=== PATIENT | male | born 1970 | race Caucasian/White ===

== ENCOUNTER 2020-07-16 09:17 | Emergency (ER) | payer MEDICARE, SELFPAY ==
--- NOTE | ~2020-07-16 | XR_ITS ---
EXAMINATION: XR chest 2V EXAM DATE: 07/16/2020 10:04 INDICATION: Shortness of breath, leg swelling. TECHNIQUE: Frontal and lateral projections of the chest obtained and reviewed. Comparison is made to prior examination from . FINDINGS: The lungs are clear. There are no pleural effusions. The cardiomediastinal silhouette is within normal limits. There is no pneumothorax suspected. The bones and soft tissues are unremarkab le. Mild hyperinflation. IMPRESSION: No acute cardiopulmonary findings. Reviewed, dictated and finalized at location B.
[2020-07-16 09:23] VITALS: BP 156/86; PULSE 77; RESP 18; O2SAT 94
[2020-07-16 09:28] VITALS: PULSE 76
--- NOTE | 2020-07-16 09:34 | ECG_ITS ---
Measurements Intervals [place] Rate: 75 P: 70 ND: 159 QRS: 46 QRSD: 89 T: 60 QT: 360 QTc: 404 Interpretive Statements SINUS RHYTHM LOW QRS VOLTAGE IN PRECORDIAL LEADS BASELINE ARTIFACT- I, II, III, AVR, AVL, AVF, V1-V6 BORDERLINE ECG Electronically Signed On 07-16-2020 15:54:06 CDT by Cesar Tamez D.O.
--- NOTE | 2020-07-16 09:41 | ED.SOB ---
HPI - SOB/Dyspnea General Chief Complaint: Shortness of Breath/Dyspnea Stated Complaint: sob, swelling to legs Time Seen by Provider: 07/16/20 09:41 Source: patient Mode of arrival: ambulatory Limitations: no limitations History of Present Illness HPI Narrative: Patient is a 50-year-old female with history of hypertension, COPD/asthma, chronic back pain, hyperlipidemia who presents for evaluation of shortness of breath. Patient states he awakened this morning feeling short of breath after feeling unwell over the past 48 hours. No fever, chills, states that he feels as if he cannot take a deep breath. He does report some mild wheezing. Mild, chronic cough which is not worsened from normal. No current chest pain. Patient reports chronic, worsening bilateral lower leg swelling with out redness. No calf pain. Patient states that he feels fine until he tries to ambulate anywhere which makes his shortness of breath much worse. No history of Covid. Patient is not vaccinated. He has been compliant with his medications. Patient denies any recent car or air travel. No history of coagulopathy. Related Data Allergies Allergy/AdvReac Type Severity Reaction Status Date / Time No Known Allergies Allergy Verified 07/16/20 09:27 Review of Systems Review of Systems: Narrative: CONSTITUTIONAL: Denies fever, chills, or sweats. EYES: Denies visual changes, redness, or discharge. ENT: Denies rhinorrhea, congestion, sore throat, or otalgia. CARDIOVASCULAR: Denies chest pain, palpitations, reports chronic lower extremity swelling RESPIRATORY: Reports cough and shortness of breath GASTROINTESTINAL: Denies abdominal pain, nausea, vomiting, or diarrhea. GENITOURINARY: Denies dysuria or hematuria. SKIN: Denies rash or itching. Reports bruising to his bottom. MUSCULOSKELETAL: Denies back pain, joint pain, or myalgia. NEUROLOGIC: Denies headache, numbness, or weakness. [facility] Past Medical History Medical History (Updated 07/16/20 @ 11:44 by Tanika Cruz MD) Psoriasis Social History Social History (Updated 07/16/20 @ 09:58 by Tanika Cruz MD) Smoking status: Current every day smoker Tobacco type: cigarettes Substance use: never Living arrangements: with family Gender identity (if verbalized by the patient): Male Exam Narrative: Exam Narrative: GENERAL: Awake, alert, conversant HEAD: Normocephalic, atraumatic. EYES: PERRLA and EOMI. ENT: Nares clear, no rhinorrhea or epistaxis. Mucous membranes moist. NECK: Supple. CHEST: Mild respiratory distress, decreased lung sounds at the bases, faint expiratory wheezes at the upper lung chaves, tachypnea HEART: Regular rate, sinus rhythm ABDOMEN:Non distended, non tender EXTREMITIES: Normal range of motion. Bilateral pitting edema to the knees, no calf tenderness or erythema bilaterally SKIN: Warm, dry, no rash. NEURO:No focal deficits. Alert and oriented x3 Course Vital Signs Vital signs: Vital Signs Pulse Rate 77 07/16/20 09:23 Respiratory Rate 18 07/16/20 09:23 Blood Pressure 156/86 H 07/16/20 09:23 Pulse Oximetry 94 07/16/20 09:23 Pulse Rate 75 07/16/20 11:11 Respiratory Rate 27 H 07/16/20 11:11 Blood Pressure 150/93 H 07/16/20 11:11 Pulse Oximetry 99 07/16/20 11:11 MDM - SOB/Dyspnea MDM Narrative Medical decision making narrative: Patient presented for evaluation of shortness of breath. Patient has a history of COPD, morbid obesity, is on Lasix but has no history of heart failure. IV access obtained and labs are drawn. Patient is in no significant distress at the time of assessment, states his dyspnea mostly comes with exertion. I believe this is probably multifactorial secondary to the patient's body habitus, morbid obesity, obesity hypoventilation, COPD with current smoking still. Patient was treated as a COPD exacerbation with steroids, DuoNeb treatment and felt much improved. At the time of reassessment his dyspnea had resolved.
[2020-07-16 09:54] LABS: Basophils Absolute Auto 0.1 K/mm3 (0.0-0.1); Basophils Percent Auto 0.7 % (0.2-1.2); Eosinophils Absolute Auto 0.2 K/mm3 (0-0.3); Eosinophils Percent Auto 2.6 % (0-4.4); Hematocrit 47.4 % (42.0-52.0); Hemoglobin 15.6 g/dL (14.0-18.0); Immature Granulocyte Absolute 0.05 K/mm3 (0.00-0.031); Immature Granulocyte Percent A 0.5 % (0-0.5); Lymphocytes Absolute Auto 2.55 K/mm3 (0.9-3.2); Lymphocytes Percent Auto 27.7 % (18.3-44.2); Mean Corpuscular HGB Conc 32.9 g/dl (32-36); Mean Corpuscular Hemoglobin 32.1 pg (26-34); Mean Corpuscular Volume 97.5 fl (80-100); Mean Platelet Volume 10.1 fl (7.4-10.4); Monocytes Absolute Auto 0.6 K/mm3 (0.1-0.6); Monocytes Percent Auto 6.2 % (2.6-8.5); Neutrophils Absolute Auto 5.7 K/mm3 (1.3-6.7); Neutrophils Percent Auto 62.3 % (45.5-73.1); Platelet Count Result 197 k/mm3 (150-375); Red Blood Count 4.86 M/mm3 (4.6-6.20); Red Cell Distribution Width 13.7 % (11.5-14.5); White Blood Count 9.2 K/mm3 (4.5-10.0)
[2020-07-16 10:04] LABS: INR 0.9
[2020-07-16 10:05] LABS: Anion Gap 7 mmol/L (8-16); Blood Urea Nitrogen 11 mg/dL (9-20); Calcium 9.4 mg/dL (8.4-10.2); Carbon Dioxide 35 mmol/L (22-30); Chloride 99 mmol/L (98-107); Estimated CRCL calculation 121 ml/min; Estimated Glomerular Filt Rate > 60; Glucose 105 mg/dL (75-110); Partial Thromboplastin Time 28.7 SECONDS (22.3-36.8); Potassium 3.7 mmol/L (3.4-5.0); Sodium 141 mmol/L (137-145)
[2020-07-16] MEDS: ALBUTEROL SULFATE NEB 2.5 MG/0.5 ML INH 5 MG INHALATION ×2 (10:12→10:58)
[2020-07-16] MEDS: IPRATROPIUM BR 0.02% INH SOLN 0.5 MG/2.5 ML VIAL 1 MG INHALATION (10:12)
[2020-07-16 10:14] VITALS: PULSE 85; RESP 26
[2020-07-16 10:14] LABS: NT Pro B Type Natriuretic Pept 35 pg/mL (5-100)
[2020-07-16 10:17] LABS: Troponin I < 0.012 ng/mL (0.000-0.034)
[2020-07-16] MEDS: methylPREDNISolone SOD SUCC 125 MG VIAL IV PUSH (10:32)
[2020-07-16 11:11] VITALS: BP 150/93; PULSE 75; RESP 27; O2SAT 99
--- NOTE | 2020-07-16 11:11 | PC.NURSE ---
Assumed care of pt at this time, pt is alert and upright, neb tx in progress, discussed POC. VSS.
[2020-07-16 12:11] VITALS: BP 162/89; PULSE 80; RESP 18; O2SAT 94
== END 2020-07-16 12:12 | disposition home or self-care (01) ==
PROVIDERS: Emergency Provider Emergency Medicine; PCP Family Medicine
DX: J44.1 Chronic obstructive pulmonary disease with (acute) exacerbation (principal); I10 Essential (primary) hypertension; E78.5 Hyperlipidemia, unspecified; F17.210 Nicotine dependence, cigarettes, uncomplicated; E66.01 Morbid (severe) obesity due to excess calories; Z68.43 Body mass index [BMI] 50.0-59.9, adult; R94.31 Abnormal electrocardiogram [ECG] [EKG]
CPT/HCPCS: 36415; 71046; 80048; 83880; 84484; 85025; 85610; 85730; 93005; 94640; 96374; 99284; J2930

== ENCOUNTER 2020-10-02 08:00 | Outpatient (RCR) | payer MEDICARE, SELFPAY ==
--- NOTE | 2020-09-01 09:12 | PTOPEVAL ---
PHYSICAL THERAPY EVALUATION AND PLAN OF CARE 09-01-20 Thank you for referring Chidi Peña to [facility], for the diagnosis of B LE lymphedema. He is scheduled to be seen for therapy? 3 x/week for 6 weeks. Please review, sign, date and return this plan of care YONATHAN. I agree with and certify that the following plan of care is medically necessary. Referring Physician Date Attending Provider: Maura Kim NP Document 09/01/20 08:05 RACHELE (Rec: 09/01/20 09:11 RACHELE [id number]) Assessment Status Evaluation Past Medical History Neurological History Hx Other Neurological Disorders Yes: neuropathy of feet Cardiovascular History Hx Coronary Stent Yes Hx Hypertension Yes: meds control Hx Myocardial Infarction Yes Respiratory History Hx Chronic Obstructive Pulmonary Disease Yes (COPD) Gastrointestinal History Hx Gastroesophageal Reflux Disease Yes Genitourinary History Hx Genitourinary Disorders No Significant History Musculoskeletal History Hx Back Pain Yes: neck and back pain- DDD Hx Orthopedic Surgery Yes: rotator cuff B Hx Other Musculoskeletal Disorders Yes: B knee pain; L hip pain/ bone deteroriation- need THR; Hematological History Hx Hematological Disorders No Significant History Endocrine History Hx Diabetes Yes: meds control HEENT History Hx HEENT Disorders No Significant History Integumentary History Hx Psoriasis Yes: psoriatic arthritis Reproductive History Hx Reproductive Disorders No Significant History Psychosocial History Hx Other Psychiatric Disorders Yes: some issues with claustrophobia Other History Hx Other Medical Conditions Yes: obese- wt gain 100# past yr; had COVID vaccine Evaluation Information Problem Diagnosis B LE lymphedema Onset about 1 year Prior Level of Function Activity Level (Last 3 Months) Occupation not working/ disability since 2012 Activity of Daily Living Ability Independent Indoor/Home Mobility Independent Community Mobility Independent Stairs Ability Independent Functional Cognition (Planning, Shopping Independent , Taking Medications) Cooking Yes Cleaning Yes Laundry Yes Shopping Yes Driving Yes Home Setting Home Type House Living Situation With Significant Other Mobility Assistive Devices (Used Last 3 None,Cane Months) Bathing Equipment Grab Bars,Tub Seat Without Back Comments Additional Prior Lev
--- NOTE | 2020-09-16 14:03 | PCPTNOTE ---
pt called and canceled today's appt
--- NOTE | 2020-10-02 12:50 | PTOPEVAL ---
PHYSICAL THERAPY DISCHARGE 10-02-20 Refer to the clinical summary below for his status today, compared to the initial evaluation. Discharge PT services. Thank you for referring [facility]idi [facility] Please review, sign, date and return this Discharge report YONTAHAN. I agree with and certify that the following plan of care is medically necessary. Referring Physician Date Attending Provider: Maura Kim NP Document 10/02/20 08:05 RACHELE (Rec: 10/02/20 09:10 RACHELE [id number]) Assessment Status Discharge Subjective Information Chidi reports: garments are Query Text:As Reported By Patient/ doing good; no problems, ready Family for discharge; no problems with doing self massage or with garments; Pain Assessment Timing of Pain Assessment Timing of Pain Assessment Assessment Self Report Self Report Pain Level 0 Pain Score Pain Score 0: Self Report Lymphedema Evaluation Skin Inspection Location Left Lower Extremity,Right Lower Extremity Skin Observations Absence of Leg Hair,Dorsum Foot Swelling, Hyperpigmentation,Hyperplasia, Obesity,Swollen, Squared off Toes Palpation Findings Pitting Edema Tissue Texture Hard Lymphedema Stage II Skin Inspection Comment B lower legs with slight redness discoloration of skin; dry flaking skin over heel and foot; Continues to have edema over dorsum of foot, decreased with treatment; and edema of toes , medial and lateral ankles B; LE Circumferential Measurement Right LE Lymphedema Side Right Metatarsal Heads (cm) 30.8 Figure 8 of Ankle (cm) 69 8 cm From Bottom of Foot (cm) 36.5 12 cm From Bottom of Foot (cm) 33.2 16 cm From Bottom of Foot (cm) 35.8 20 cm From Bottom of Foot (cm) 38 24 cm From Bottom of Foot (cm) 41.8 28 cm From Bottom of Foot (cm) 46.4 32 cm From Bottom of Foot (cm) 49 36 cm From Bottom of Foot (cm) 50.8 40 cm From Bottom of Foot (cm) 50.5 44 cm From Bottom of Foot (cm) 48.8 48 cm From Bottom of Foot (cm) 47 52 cm From Bottom of Foot (cm) 55 56 cm From Bottom of Foot (cm) 57.2 60 cm From Bottom of Foot (cm) 62 64 cm From Bottom of Foot (cm) 64.5 68 cm From Bottom of Foot (cm) 68.8 Total Left Lower Extremity Right LE: 885.1 cm Circumferential Measurement (cm)
== END 2020-11-16 08:49 | disposition home or self-care (01) ==
LOC: ANHPT 08:00
PROVIDERS: PCP Family Medicine
DX: I89.0 Lymphedema, not elsewhere classified (principal)
CPT/HCPCS: 29581; 97016; 97140; 97161

== ENCOUNTER 2021-02-17 13:37 | Emergency (ER) | payer MEDICARE, MEDICAID, SELFPAY ==
[2021-02-17 13:43] VITALS: BP 144/98; PULSE 92; RESP 24; TEMP 36.4; O2SAT 97
== END 2021-02-18 00:45 | disposition left against medical advice (07) ==
PROVIDERS: PCP Family Medicine
DX: R06.02 Shortness of breath (principal)
CPT/HCPCS: 99199

== ENCOUNTER 2021-03-04 08:01 | Outpatient (CLI) | payer MEDICARE, MEDICAID, SELFPAY ==
--- NOTE | 2021-03-04 16:11 | WPDSIXMINUTE ---
Six Minute Walk Procedure Procedure Performed Pulmonary Stress Test (6 min walk) Six Minute Walk This is a 6 minute walk test. The test was performed and interpreted in accordance with the 2014 ERS/ATS task force guidelines. Of note patient used a personal Ty and stopped at 4 minutes and 30 seconds for approximately 20 seconds. Findings: The patient's resting room air oxygen saturation measured by pulse oximetry was 96% and heart rate was 85 bpm. Patient ambulated for 152 meters and oxygen saturation remained 94%. Heart rate at the end of the study was 100 bpm. The patient did not qualify for supplemental oxygen at rest or with ambulation. There are no prior studies for comparison.
== END 2021-03-04 08:02 | disposition home or self-care (01) ==
LOC: ANHPFT 08:04
PROVIDERS: PCP Family Medicine; Visit Provider Family Medicine
DX: R06.00 Dyspnea, unspecified (principal)
CPT/HCPCS: 94618

== ENCOUNTER 2021-11-03 09:54 | Outpatient (CLI) | payer MEDICARE, MEDICAID, SELFPAY | END 2021-11-03 09:55 | disposition home or self-care (01) | LOC: ANHAUDIO 09:56 | PROVIDERS: PCP Family Medicine; Visit Provider Family Medicine | DX: H91.93 Unspecified hearing loss, bilateral (principal) | CPT/HCPCS: 92557; 92567 ==